=== PATIENT | female | born 1980 | race Caucasian/White ===

== ENCOUNTER 2023-05-10 19:26 | Inpatient (IN) | payer MEDICARE, OTHER ==
[~2023-05-10] VITALS: Ht 162.6 cm; Wt 74.8 kg
[2023-05-10 19:45] VITALS: BP 123/67; PULSE 84; RESP 17; TEMP 98; O2SAT 98
[2023-05-10 20:59] LABS: BASOPHILS # (AUTO) 0.1 K/uL (0.00-0.22); BASOPHILS % (AUTO) 1.3 % (0.0-2.0); EOSINOPHILS # (AUTO) 0.1 K/uL (0-0.4); EOSINOPHILS % (AUTO) 2.1 % (0.0-4.0); HEMATOCRIT 42.7 % (36-48); HEMOGLOBIN 14.4 g/dL (12.0-16.0); LYMPHOCYTES # (AUTO) 1.2 K/uL (2.5-16.5); LYMPHOCYTES % (AUTO) 20.5 % (20.5-51.1); MEAN CORPUSCULAR HEMOGLOBIN 31 pg (27-31); MEAN CORPUSCULAR HGB CONC 34 g/dL (33-37); MEAN CORPUSCULAR VOLUME 90.9 fL (80-94); MONOCYTES # (AUTO) 0.5 K/uL (0.8-1.0); MONOCYTES % (AUTO) 8.4 % (1.7-9.3); NEUTROPHILS % (AUTO) 67.7 % (42.2-75.2); PLATELET COUNT (AUTO) 283 K/uL (140-450); RED BLOOD CELL COUNT(AUTO) 4.69 MIL/uL (4.20-5.40); RED CELL DISTRIBUTION WIDTH 13.5 % (11.6-13.7); WHITE BLOOD COUNT (AUTO) 5.9 K/uL (4.8-10.8)
[2023-05-10 21:12] LABS: BILIRUBIN,URINE NEGATIVE (NEGATIVE); BLOOD, URINE TRACE-I (NEGATIVE); COLOR,URINE YELLOW (YELLOW); LEUKOCYTE ESTERASE ,URINE NEGATIVE (NEGATIVE); NITRITE, URINE NEGATIVE (NEGATIVE); PROTEIN,URINE NEGATIVE (NEGATIVE); UGLUCOSE NEGATIVE (NEGATIVE); UROBILINOGEN,URINE 0.2 EU/dL (0.2 - 1)
[2023-05-10] MEDS ORDERED: CRUSHER, PILL MC ONE (21:23)
[2023-05-10 21:26] LABS: ALBUMIN 3.7 g/dL (3.4-5.0); ANION GAP 10.6 (8-16); CALCIUM 8.6 mg/dL (8.5-10.1); CARBON DIOXIDE 28.7 mmol/L (21-32); CREATININE 0.9 mg/dL (0.6-1.3); POTASSIUM 3.3 mmol/L (3.5-5.1); TOTAL BILIRUBIN 0.3 mg/dL (0.0-1.0); TOTAL PROTEIN, SERUM 8.4 g/dL (6.4-8.2)
[2023-05-10 21:31] LABS: LACTIC ACID 0.6 mmol/L (0.4-2.0)
[2023-05-10 21:40] LABS: APPEARANCE,URINE HAZY (CLEAR); BACTERIA,URINE 2+ /HPF (None Seen); RBC,URINE 0-5 /HPF (0-5); SQUAMOUS EPITHELIAL CELL,UR 20-50 /LPF (0-3 (FEW)); WBC,URINE 20-60 /HPF (0-5)
[2023-05-10] MEDS ORDERED: NACL 0.9% 1,000 ML IV ONE (23:15)
[2023-05-10] MEDS ORDERED: MORPHINE SULFATE 4 MG/ML SYR IVP ONE (23:15)
[2023-05-10] MEDS ORDERED: ONDANSETRON 4 MG/2 ML VIAL IVP ONE (23:15)
[2023-05-11] MEDS ORDERED: metroNIDAZOLE 500 MG/NS PREMIX 100 ML IV ONE (04:25)
[2023-05-11] MEDS ORDERED: KETOROLAC 30 MG/ML VIAL IVP ONE (04:25)
[2023-05-11] MEDS ORDERED: cefTRIAXone 1,000 MG VIAL ONE (04:33)
[2023-05-11 08:00] VITALS: BP 99/42; PULSE 69; RESP 18; TEMP 97; O2SAT 93
[2023-05-11] MEDS ORDERED: ACETAMINOPHEN 325 MG TAB PO PRN (15:25)
[2023-05-11] MEDS ORDERED: ONDANSETRON 4 MG/5 ML ORASYR GT PRN (15:30)
[2023-05-11 16:00] VITALS: BP 101/55; PULSE 64; RESP 17; TEMP 97.7; O2SAT 97
[2023-05-11] MEDS ORDERED: POTASSIUM CHLORIDE 10 MEQ TABER PO PRN (19:20)
[2023-05-11 20:00] VITALS: BP 97/51; PULSE 56; RESP 18; TEMP 97.6; O2SAT 100
[2023-05-12 08:00] VITALS: BP 90/48; PULSE 56; RESP 18; TEMP 97.5; O2SAT 100; O2SAT 98
[2023-05-12] MEDS ORDERED: HYDROmorphone PFS 2 MG/ML SYR ONE ×3 (09:19→12:09)
[2023-05-12] MEDS ORDERED: MIDAZOLAM 2 MG/2 ML VIAL ONE ×2 (09:19→10:00)
[2023-05-12] MEDS ORDERED: LIDOCAINE/EPI MPF 1%1:200000 30 ML VIAL INJ ONE (09:20)
[2023-05-12] MEDS ORDERED: BUPIVACAINE-MPF 0.25% 30 ML VIAL INJ ONE (09:20)
[2023-05-12] MEDS ORDERED: PROPOFOL 200 MG/20 ML VIAL IV ONE (09:23)
[2023-05-12] MEDS ORDERED: ROCURONIUM 50 MG/5 ML VIAL IV ONE ×2 (09:23→10:00)
[2023-05-12] MEDS ORDERED: SUCCINYLCHOLINE CHLORIDE 200 MG/10 ML VIAL IVP ONE ×2 (09:24→10:00)
[2023-05-12] MEDS ORDERED: SEVOFLURANE 250 ML BTL INH ONE (10:00)
[2023-05-12] MEDS ORDERED: SUGAMMADEX SODIUM 200 MG/2 ML VIAL IV ONE ×2 (10:00→11:13)
[2023-05-12] MEDS ORDERED: DEXAMETHASONE 4 MG/ML VIAL ONE ×3 (10:00→11:17)
[2023-05-12] MEDS ORDERED: ONDANSETRON 4 MG/2 ML VIAL ONE ×2 (10:00→11:17)
[2023-05-12] MEDS ORDERED: KETOROLAC 30 MG/ML VIAL ONE (10:00)
[2023-05-12] MEDS ORDERED: GLYCOPYRROLATE 0.2 MG/ML VIAL ONE (11:40)
[2023-05-12] MEDS: NACL 0.9% 1,000 ML IV SCH ×2 (11:50→20:23)
[2023-05-12] MEDS ORDERED: ONDANSETRON 4 MG/2 ML VIAL IVP PRN (11:50)
[2023-05-12] MEDS ORDERED: HYDROmorphone 1 MG/ML AMP IVP PRN (11:50)
[2023-05-12] MEDS ORDERED: MEPERIDINE 25 MG/ML SYR IVP PRN (11:50)
[2023-05-12 12:00] VITALS: BP 90/48; PULSE 56; RESP 18; TEMP 97.5; O2SAT 100
[2023-05-12] MEDS: HYDROmorphone 1 MG/ML AMP IVP PRN ×3 (12:10→12:30)
[2023-05-12 16:00] VITALS: BP 106/64; PULSE 55; RESP 18; TEMP 97; O2SAT 96
[2023-05-12 19:04] LABS: BASOPHILS % (AUTO) 0.3 % (0.0-2.0); HEMATOCRIT 37.5 % (36-48); HEMOGLOBIN 12.5 g/dL (12.0-16.0); LYMPHOCYTES # (AUTO) 0.6 K/uL (2.5-16.5); MEAN CORPUSCULAR HEMOGLOBIN 30 pg (27-31); MEAN CORPUSCULAR HGB CONC 33 g/dL (33-37); MEAN CORPUSCULAR VOLUME 90.7 fL (80-94); MONOCYTES # (AUTO) 0.2 K/uL (0.8-1.0); MONOCYTES % (AUTO) 2.6 % (1.7-9.3); NEUTROPHILS # (AUTO) 7.2 K/uL (1.8-7.7); NEUTROPHILS % (AUTO) 90.1 % (42.2-75.2); PLATELET COUNT (AUTO) 265 K/uL (140-450); RED BLOOD CELL COUNT(AUTO) 4.13 MIL/uL (4.20-5.40); RED CELL DISTRIBUTION WIDTH 13.2 % (11.6-13.7)
[2023-05-12] MEDS: HYDROcodone/APAP 5/325 MG 1 TAB TAB PO PRN (19:04)
[2023-05-12 19:24] LABS: ANION GAP 13.2 (8-16); CARBON DIOXIDE 24.9 mmol/L (21-32); CREATININE 0.7 mg/dL (0.6-1.3); POTASSIUM 4.1 mmol/L (3.5-5.1)
[2023-05-12 20:00] VITALS: BP 127/78; PULSE 58; RESP 18; TEMP 97.8; O2SAT 99
[2023-05-13] MEDS: HYDROcodone/APAP 5/325 MG 1 TAB TAB PO PRN (00:40)
[2023-05-13] MEDS: NACL 0.9% 1,000 ML IV SCH ×2 (06:50→17:50)
[2023-05-13 07:09] LABS: BASOPHILS % (AUTO) 0.5 % (0.0-2.0); EOSINOPHILS # (AUTO) 0.1 K/uL (0-0.4); EOSINOPHILS % (AUTO) 0.7 % (0.0-4.0); HEMATOCRIT 34.9 % (36-48); HEMOGLOBIN 11.6 g/dL (12.0-16.0); LYMPHOCYTES # (AUTO) 1.8 K/uL (2.5-16.5); LYMPHOCYTES % (AUTO) 23.2 % (20.5-51.1); MEAN CORPUSCULAR HEMOGLOBIN 30 pg (27-31); MEAN CORPUSCULAR HGB CONC 33 g/dL (33-37); MEAN CORPUSCULAR VOLUME 90.3 fL (80-94); MONOCYTES # (AUTO) 0.5 K/uL (0.8-1.0); NEUTROPHILS # (AUTO) 5.2 K/uL (1.8-7.7); NEUTROPHILS % (AUTO) 68.6 % (42.2-75.2); PLATELET COUNT (AUTO) 249 K/uL (140-450); RED BLOOD CELL COUNT(AUTO) 3.87 MIL/uL (4.20-5.40); RED CELL DISTRIBUTION WIDTH 12.9 % (11.6-13.7); WHITE BLOOD COUNT (AUTO) 7.6 K/uL (4.8-10.8)
[2023-05-13 07:38] LABS: ALBUMIN 2.6 g/dL (3.4-5.0); ANION GAP 11.3 (8-16); CALCIUM 7.4 mg/dL (8.5-10.1); CARBON DIOXIDE 25.2 mmol/L (21-32); CREATININE 0.7 mg/dL (0.6-1.3); POTASSIUM 3.5 mmol/L (3.5-5.1); TOTAL BILIRUBIN 0.3 mg/dL (0.0-1.0); TOTAL PROTEIN, SERUM 6.1 g/dL (6.4-8.2)
[2023-05-13 08:00] VITALS: BP 133/80; PULSE 58; PULSE 62; RESP 18; TEMP 97; O2SAT 97
[2023-05-13 16:00] VITALS: BP 131/78; PULSE 59; RESP 18; TEMP 97; O2SAT 96
[2023-05-13 20:00] VITALS: BP 112/78; PULSE 76; RESP 17; TEMP 98.4; O2SAT 94
[2023-05-14] MEDS: NACL 0.9% 1,000 ML IV SCH (03:50)
[2023-05-14 04:00] VITALS: BP 112/73; PULSE 65; RESP 16; TEMP 98.2; O2SAT 97
[2023-05-14 08:00] VITALS: PULSE 76; RESP 17; O2SAT 98
[2023-05-14 08:53] LABS: ALBUMIN 2.9 g/dL (3.4-5.0); ANION GAP 10.5 (8-16); CALCIUM 8.3 mg/dL (8.5-10.1); CREATININE 0.7 mg/dL (0.6-1.3); POTASSIUM 3.5 mmol/L (3.5-5.1); TOTAL BILIRUBIN 0.4 mg/dL (0.0-1.0); TOTAL PROTEIN, SERUM 6.9 g/dL (6.4-8.2)
[2023-05-14] MEDS: HYDROcodone/APAP 5/325 MG 1 TAB TAB PO PRN (10:17)
[2023-05-14] MEDS ORDERED: AMOX1TAB15 PO (11:42)
[2023-05-14] MEDS ORDERED: MELO10CA3 PO (11:43)
[2023-05-14] MEDS ORDERED: ACET-10509 PO (11:44)
[2023-05-14 13:05] VITALS: BP 134/76; PULSE 84; RESP 20; TEMP 98.2
== END 2023-05-14 14:05 | disposition home or self-care (01) | DRG 263 ==
LOC: MED 19:26 → MTU 05-11 06:12
PROVIDERS: ADMIT Hospitalist; ATTEND Hospitalist
PROC: 0DNU4ZZ Release Omentum, Percutaneous Endoscopic Approach (ICD-10-PCS; 2023-05-12)
PROC: 0FT44ZZ Resection of Gallbladder, Percutaneous Endoscopic Approach (ICD-10-PCS; principal; 2023-05-12 07:30)
DX: K80.62 Calculus of gallbladder and bile duct with acute cholecystitis without obstruction (principal); D62 Acute posthemorrhagic anemia; K82.8 Other specified diseases of gallbladder; N39.0 Urinary tract infection, site not specified; R74.01 Elevation of levels of liver transaminase levels
CPT/HCPCS: 36415; 76705; 80048; 80053; 81001; 83605; 83690; 85025; 86886; 86900; 86901; 87040; 87081; 87086; 88304; 96361; 96365; 96375; 99285; J0330; J0696; J1100; J1170; J1885; J2001; J2250; J2270; J2405; J2704; J3490; J7030; J7060; Q0092; Q0162; Q9967